=== PATIENT | male | born 1990 | race African-American/Black ===

== ENCOUNTER 2023-03-11 16:04 | Observation (INO) | payer OTHER, SELFPAY ==
--- NOTE | ~2023-03-11 | CT_ITS ---
CT OF right lower extremity EXAMINATION: CT LE RT w con DATE: 03/11/2023 20:43 INDICATION: Inner thigh abscess TECHNIQUE: Computed tomography (CT) of the right lower extremity was performed without intravenous co ntrast. Automated exposure control and iterative reconstruction technique were employed. The dose-fabien gth product was 1028.60 mGy-cm. COMPARISON: None FINDINGS: No osseous fracture, erosion, or periosteal change. Mild degenerative change in the right hip. Pelvic contents are normal. Bilateral inguinal lymphadenopathy. 16 mm cutaneous hypodensity in the medial t high, without a well-formed enhancing wall. Surrounding skin thickening and subcutaneous edema/inflam matory change. No discrete abscess. No other low-density collection. IMPRESSION: 16 mm cutaneous hypodensity in the right medial thigh may represent phlegmon or early abscess. Surrou nding dermal thickening and subcutaneous induration would be consistent with cellulitis. Reviewed, dictated and finalized at location K. IMPRESSION: 16 mm cutaneous hypodensity in the right medial thigh may represent phlegmon or early abscess. Surrounding dermal thickening and subcutaneous induration would be consistent with cellulitis.
[2023-03-11 19:13] VITALS: BP 134/102; PULSE 111; RESP 16; TEMP 36.1; O2SAT 99
--- NOTE | 2023-03-11 19:27 | ED.SKABFB ---
HPI - Skin/Abscess/Foreign Bdy General Chief complaint: Skin/Abscess/Foreign Body Time Seen by Provider: 03/11/23 19:11 History of Present Illness HPI narrative: Patient is a 32-year-old male here for evaluation of a painful lesion to his right inner thigh. Patient states he first noticed pain to the thigh about 4 days ago. Pain has gradually increased, and he noticed an area of firmness and redness develop as well. Yesterday the lesion started to drain clear material and has continued to drain into today. He reports subjective fevers yesterday. He has no past medical history. No nausea, vomiting, abdominal pain. Related Data Allergies Allergy/AdvReac Type Severity Reaction Status Date / Time amoxicillin Allergy Unknown Verified 03/11/23 19:15 Penicillins Allergy Unknown Verified 03/11/23 19:15 Review of Systems Review of Systems: Gen.: Denies fevers or chills Eyes: Denies eye pain or visual change ENT: Denies congestion Respiratory: Denies shortness of breath or cough CV: Denies chest pain or palpitations GI: Denies abdominal pain nausea, emesis or diarrhea denies burning, urgency, frequency or hematuria Musculoskeletal: Denies back pain or muscle pain Neuro: Denies numbness, tingling, weakness or focal weakness Skin: Reports abscess to right inner thigh Except as documented, all other systems reviewed and negative [facility] Past Medical History Medical History (Updated 03/19/23 @ 09:36 by Jenna Harp) No pertinent past medical history Surgical History Surgical History (Updated 03/19/23 @ 09:17 by Jenna Harp) Status post incision and drainage incision and drainage of simple right medial thigh abscess 03/12/23 Family History Family History Mother Diabetes mellitus Father Diabetes mellitus Social History Social History Smoking status: Never smoker Alcohol intake: never Substance use: never Lack of Transportation: No Lack of Food: Never True Current Housing: I Have Housing Concerned About Future Housing: No Difficulty Paying Gas/Electric Bills: No Difficulty Paying for Meds: No Currently Unemployed: No Education: Associate Degree Difficulty w/ Childcare or Family Care: No Spiritual care concerns: No Exam Narrative: Gen: Alert, oriented, no acute distress Eyes: EOMI, no icterus Pulm: Respirations even and unlabored, symmetric thorax expansion, no audible stridor or visible cyanosis CV: Regular rate per telemetry GI: No distension, no voluntary/involuntary guarding Neuro: AOx4, moves all extremities without apparent difficulty or weakness, follows commands Skin: There is a 8 x 6 cm area of induration to the right inner thigh with dark discoloration over time and a possible central area of fluctuance Psych: Normal mood/affect, insight/judgement good, adequate fund of knowledge, recent/remote memory intact Course Vital Signs Vital signs: Vital Signs Temperature 36.1 C L 03/11/23 19:13 Pulse Rate 111 H 03/11/23 19:13 Respiratory Rate 16 03/11/23 19:13 Blood Pressure 134/102 H 03/11/23 19:13 Pulse Oximetry 99 03/11/23 19:13 Oxygen Delivery Room Air 03/11/23 19:13 Temperature 36.3 C L 03/13/23 15:11 Pulse Rate 75 03/13/23 15:11 Respiratory Rate 18 03/13/23 15:11 Blood Pressure 123/81 03/13/23 15:11 Pulse Oximetry 100 03/13/23 15:11 Oxygen Delivery Room Air 03/13/23 08:00 MDM - Skin/Abscess/Foreign Bdy MDM Narrative Medical decision making narrative: 32 year old male here with an extensive cellulitis to the right inner thigh. No known past medical history but patient's blood sugar is elevated at 350 and hemoglobin a1c is 12 here. Slightly tachycardic but afebrile. White count is 13. Lactic is negative. Area was scanned to r/o fourniers/nec fasc and it has no subcutaneous gas or other concerning e
[2023-03-11] MEDS: KETOROLAC 15 MG/ML VIAL (*BKC) IV PUSH (19:40)
[2023-03-11] MEDS: CLINDAMYCIN 600 MG/D5W 50 ML 600 MG/50 ML PIGGYBACK 100 MG IVPB (19:40)
[2023-03-11] MEDS: SODIUM CHLORIDE 0.9% IV 1,000 ML 999 ML IV CONT (19:41)
[2023-03-11 19:42] LABS: Basophils Percent Auto 0.1 % (0.2-1.2); Eosinophils Percent Auto 0.3 % (0-4.4); Hematocrit 46.2 % (42.0-52.0); Hemoglobin 15.1 g/dL (14.0-18.0); Immature Granulocyte Absolute 0.03 K/mm3 (0.00-0.031); Immature Granulocyte Percent A 0.2 % (0-0.5); Lymphocytes Absolute Auto 1.51 K/mm3 (0.9-3.2); Lymphocytes Percent Auto 11.3 % (18.3-44.2); Mean Corpuscular HGB Conc 32.7 g/dl (32-36); Mean Corpuscular Hemoglobin 28.7 pg (26-34); Mean Corpuscular Volume 87.8 fl (80-100); Mean Platelet Volume 10.4 fl (7.4-10.4); Monocytes Absolute Auto 0.9 K/mm3 (0.1-0.6); Monocytes Percent Auto 6.4 % (2.6-8.5); Neutrophils Absolute Auto 10.9 K/mm3 (1.3-6.7); Neutrophils Percent Auto 81.7 % (45.5-73.1); Platelet Count Result 392 k/mm3 (150-375); Red Blood Count 5.26 M/mm3 (4.6-6.20); Red Cell Distribution Width 12.6 % (11.5-14.5); White Blood Count 13.4 K/mm3 (4.5-10.0)
[2023-03-11 19:53] LABS: Lactic Acid Reflex 1.3 mmol/L (0.7-2.0)
[2023-03-11 20:04] LABS: Anion Gap 10 mmol/L (8-16); Blood Urea Nitrogen 10 mg/dL (9-20); Calcium 9.6 mg/dL (8.4-10.2); Carbon Dioxide 30 mmol/L (22-30); Chloride 96 mmol/L (98-107); Estimated CRCL calculation 138 ml/min; Estimated Glomerular Filt Rate > 60; Glucose 315 mg/dL (65-110); Potassium 3.8 mmol/L (3.4-5.0); Sodium 136 mmol/L (137-145)
[2023-03-11 21:38] LABS: Hemoglobin A1C 12.7 % (<5.7)
[2023-03-12 02:24] VITALS: BP 147/90; PULSE 93; RESP 16; TEMP 35.7; O2SAT 99; BMI 32.8
[2023-03-12] MEDS: CLINDAMYCIN 600 MG/D5W 50 ML 600 MG/50 ML PIGGYBACK 100 MG IVPB ×3 (04:00→21:41)
[2023-03-12 05:53] VITALS: BP 126/77; PULSE 91; RESP 18; TEMP 35.7; O2SAT 99
[2023-03-12 07:51] VITALS: BMI 32.1
--- NOTE | 2023-03-12 09:36 | PM.IMHP ---
H&P: HPI History of Present Illness Date/Time: 03/12/23 09:36 Chief Complaint: Right thigh abscess Narrative: This is a 32-year-old man with no known medical history, who presented to the ER last night with complaints of right thigh swelling, pain, and drainage. He first noticed some swelling in his right medial upper thigh 4 days ago. This was initially small and grew larger over the next 2 days. Blaze, 2 days ago, he noticed purulent drainage from this area. Reports subjective fevers two days ago. In the ER, labs were significant for WBC count 13,400, lactic acid 1.3, and glucose 315. Hgb A1C was subsequently ordered and is 12.7. CT right lower extremity showed 16 mm cutaneous hypodensity in the right medial thigh that may represent phlegmon or early abscess with surrounding dermal thickening and subcutaneous induration, consistent with cellulitis. Our service was consulted by the ER and he was admitted to our service for surgical evaluation of right thigh abscess. He is seen this morning. Denies having a history of abscess. Denies a known history of diabetes, but does have a family history in his mother and father. He does not currently have a primary care provider. With further questioning, he also reports recent frequent urination, excessive thirst, and about a 20 lb weight loss in the last 4 months. He has actually been debating being seen for the concern that he could be diabetic. He is still having drainage from this area this morning and feels it has actually gone down in size as of this morning with some relief in his discomfort. He has been started on IV Clindamycin. No other complaints at this time. Review of Systems Review of Systems: All systems reviewed & are unremarkable except as noted in HPI and below Constitutional: Constitutional: Reports no additional constitutional complaints, Reports chills, Denies fatigue, Reports fever(s) and Reports weight loss Eyes: Eyes: Reports no additional eye complaints and Denies blurry vision ENT: Reports system reviewed and no additional complaints, except as documented, Denies dizziness and Reports dry mouth Cardiovascular: Cardiovascular: Reports no additional cardiovascular complaints, Denies chest pain and Denies leg edema Respiratory: Respiratory: Reports no additional respiratory complaints, Denies cough and Denies dyspnea Gastrointestinal: Gastrointestinal: Reports as per HPI, Reports no additional gastrointestinal complaints, Denies abdominal pain, Denies change in bowel habits, Denies constipation, Denies diarrhea, Denies nausea and Denies vomiting Genitourinary: Genitourinary: Reports no additional male genitourinary complaints, Denies dysuria and Reports urinary frequency Musculoskeletal: Musculoskeletal: Reports no additional musculoskeletal complaints, Denies abnormal gait and Denies joint swelling Integumentary/Breasts: Skin/Breast: Reports as per HPI and Reports skin swelling (right medial upper thigh) Neurologic: Reports system reviewed and no additional complaints, except as documented, Denies headache(s), Denies focal weakness, Denies numbness and Denies tingling PMFSH Past Medical History Medical History No pertinent past medical history Surgical History Surgical History No significant past surgical history Family History Family History Mother Diabetes mellitus Father Diabetes mellitus Social History Social History Smoking status: Never smoker Alcohol intake: never Substance use: never Lack of Transportation: No Lack of Food: Never True Current Housing: I Have Housing Concerned About Future Housing: No Difficulty Paying Gas/Electric Bills: No Difficulty Paying for Meds: No Currently Unemployed: No Education: Associate De
--- NOTE | 2023-03-12 10:44 | P.OP_ITS ---
Procedure Note - Detailed Date of Procedure 03/12/23 Pre-op Diagnosis Right medial upper thigh abscess Post-op Diagnosis Same Procedure Performed Incision and drainage of simple right medial thigh abscess Surgeon NUBIA Quinonez Paint Line Supervisor AUBREE Hoskins Anesthesia Local (lidocaine 1% with epinephrine) Indications This is a 32 year old man who presented to the ER with a right medial thigh abscess. He was was also found to have hyperglycemia on initial labs with an elevated hemoglobin A1C with newly diagnosed diabetes. He was admitted and evaluated this morning. Decision was made to proceed with incision and drainage of right medial thigh abscess at the bedside. Findings Right medial upper thigh abscess Description of Procedure The patient was placed in the supine position in the hospital bed with his legs flexed and externally rotated on the bed. The site of the abscess for required I&D was identified on the right medial upper thigh. Following this, the area was prepped with chlorhexidine swabs and draped in usual sterile fashion. Then, local anesthetic was infiltrated directly over the area of swelling and abscess formation. There was a 1 cm x 1 cm area of pressure necrosis where the opening was located with purulence draining from this area. Scissors and pickups were used for sharp debridement of the small area of necrotic skin. Then using a #15 blade scalpel I extended the opening and made an incision anteriorly and posteriorly to create a 2 cm opening. I then probed the opening and found a pocket of purulent fluid that tunnelled about 1-2 cm deep and posterior. All purulent drainage was expressed from the abscess. The abscess cavity was again probed with all loculation broken up. Following this, the area was packed with 1/4 inch iodoform Nu Gauze. The area was then covered with 4x4s and tape. The patient tolerated the procedure well. Estimated Blood Loss 0 Drains No Packing Yes Pathology None sent Complications No immediate complications Condition Stable Disposition No change [facility] Billing Surgery - Charge Forward: Surgery Billing
[2023-03-12 11:30] VITALS: BMI 32.1
[2023-03-12] MEDS: LIDO 1%/EPINEPHRINE 1:100,000 20 ML VIAL 5 ML INFILTRATE (11:30)
[2023-03-12 11:52] LABS: Glucose Point of Care 211 mg/dl (65-105)
[2023-03-12 12:32] LABS: Basophils Percent Auto 0.3 % (0.2-1.2); Eosinophils Percent Auto 0.3 % (0-4.4); Hematocrit 39.7 % (42.0-52.0); Hemoglobin 12.8 g/dL (14.0-18.0); Immature Granulocyte Absolute 0.04 K/mm3 (0.00-0.031); Immature Granulocyte Percent A 0.3 % (0-0.5); Lymphocytes Percent Auto 12.9 % (18.3-44.2); Mean Corpuscular HGB Conc 32.2 g/dl (32-36); Mean Corpuscular Hemoglobin 28.4 pg (26-34); Mean Platelet Volume 10.3 fl (7.4-10.4); Monocytes Absolute Auto 0.7 K/mm3 (0.1-0.6); Monocytes Percent Auto 6.3 % (2.6-8.5); Neutrophils Absolute Auto 9.3 K/mm3 (1.3-6.7); Neutrophils Percent Auto 79.9 % (45.5-73.1); Platelet Count Result 359 k/mm3 (150-375); Red Blood Count 4.51 M/mm3 (4.6-6.20); Red Cell Distribution Width 12.5 % (11.5-14.5); White Blood Count 11.6 K/mm3 (4.5-10.0)
[2023-03-12] MEDS: glipiZIDE XL 5 MG TABCR PO (12:35)
[2023-03-12] MEDS: metFORMIN HCL XR 500 MG TAB.SR.24H PO ×2 (12:35→17:37)
[2023-03-12] MEDS: INSULIN ASPART (*BKC) 100 UNITS/ML SUB-Q (12:35)
[2023-03-12] MEDS: ACETAMINOPHEN 500 MG TABLET 1000 MG PO (12:42)
[2023-03-12 12:46] LABS: Alanine Aminotransferase 57 U/L (6-50); Albumin Level 4.3 g/dL (3.5-5.1); Alkaline Phosphatase 101 U/L (38-126); Anion Gap 9 mmol/L (8-16); Aspartate Amino Transferase 41 U/L (17-59); Bilirubin,Total 0.8 mg/dL (0.2-1.3); Blood Urea Nitrogen 9 mg/dL (9-20); Calcium 8.7 mg/dL (8.4-10.2); Carbon Dioxide 31 mmol/L (22-30); Chloride 98 mmol/L (98-107); Estimated CRCL calculation 159 ml/min; Estimated Glomerular Filt Rate > 60; Glucose 227 mg/dL (65-110); Potassium 3.4 mmol/L (3.4-5.0); Sodium 138 mmol/L (137-145)
[2023-03-12 13:03] LABS: Procalcitonin 0.1 ng/mL
[2023-03-12 14:52] VITALS: BP 127/84; PULSE 82; RESP 18; TEMP 36.7; O2SAT 100
--- NOTE | 2023-03-12 16:02 | PM.IMPN ---
Subjective Date/time seen: 03/12/23 16:02 Objective Data Vital Signs Vital Signs: Vital Signs - 24 hr 03/11/23 19:13 03/12/23 02:24 03/12/23 05:53 Temperature 97 F L 96.3 F L 96.2 F L Pulse Rate 111 H 93 91 Respiratory Rate 16 16 18 Blood Pressure 134/102 H 147/90 H 126/77 Pulse Oximetry 99 99 99 Oxygen Delivery Room Air 03/12/23 14:52 Temperature 98.1 F Pulse Rate 82 Respiratory Rate 18 Blood Pressure 127/84 Pulse Oximetry 100 Oxygen Delivery Intake/Output Intake/Output: Intake & Output 03/09/23 03/10/23 03/11/23 03/12/23 23:59 23:59 23:59 23:59 Intake Total 1050 465 Balance 1050 465 Meds/Results Medications: Active Medications Generic Name Dose Route Start Last Admin Trade Name Freq PRN Reason Stop Dose Admin Acetaminophen 1,000 mg 03/12/23 09:37 03/12/23 12:42 Acetaminophen 500 Mg Tablet PO 1,000 mg Q6H PRN Administration Mild Pain (1-3) or Fever Hydrocodone Bitart/Acetaminophen 1 tab 03/12/23 09:53 Hydrocodone/Acetaminophen (*Crx) 5-325 Mg Tablet PO Q4H PRN Pain Rated 4-6 Dextrose 12.5 gm 03/12/23 09:07 Dextrose 50% 25 Gm/50 Ml Syringe IV PUSH PRN PRN Hypoglycemia Protocol Glipizide 5 mg 03/12/23 11:00 03/12/23 12:35 Glipizide Xl 5 Mg Tabcr PO 5 mg DAILY@0800 KRISTEN Administration Glucagon 1 mg 03/12/23 09:07 Glucagon For Inj 1 Mg Vial IM PRN PRN Hypoglycemia Protocol Glucose 15 gm 03/12/23 09:07 Glucose Oral Gel 15 Gm Of Glucse In 37.5 Gm Tube PO PRN PRN Hypoglycemia Protocol Clindamycin Phosphate 600 mg in 50 mls @ 100 mls/hr 03/12/23 13:00 03/12/23 13:12 Clindamycin 600 Mg/D5w 50 Ml IVPB Infused Q8HR KRISTEN Infusion Dextrose 1,000 mls @ 100 mls/hr 03/12/23 09:07 Dextrose 5% 1,000 Ml IVPB PRN PRN Hypoglycemia Protocol Insulin Aspart 3 - 6 units 03/12/23 12:00 03/12/23 12:35 Insulin Aspart (*Bkc) 100 Units/Ml SUB-Q 3 units TIDWM KRISTEN Administration Protocol Insulin Human NPH 16 units 03/12/23 16:30 Insulin Human Nph (*Bkc) 100 Units/Ml SUB-Q BIDAC KRISTEN Metformin HCl 500 mg 03/12/23 11:00 03/12/23 12:35 Metformin Hcl Xr 500 Mg Tab.Sr.24h PO 500 mg BIDWM KRISTEN Administration Radiology Results: ITS Impressions Lower Extremity CT 03/11/23 21:29 IMPRESSION: 16 mm cutaneous hypodensity in the right medial thigh may represent phlegmon or early abscess. Surrounding dermal thickening and subcutaneous induration would be consistent with cellulitis. Labs Labs: Laboratory Results - last 24 hr 03/11/23 03/11/23 03/12/23 19:34 20:44 11:40 WBC 13.4 H RBC 5.26 Hgb 15.1 Hct 46.2 MCV 87.8 MCH 28.7 MCHC 32.7 RDW 12.6 Plt Count 392 H MPV 10.4 Immature Gran % (Auto) 0.2 Neut % (Auto) 81.7 H Lymph % (Auto) 11.3 L [place] % (Auto) 6.4 Eos % (Auto) 0.3 Baso % (Auto) 0.1 L Lymph # (Auto) 1.51 [place] # (Auto) 0.9 H Eos # (Auto) 0.0 Baso # (Auto) 0.0 Abs Immat Gran (auto) 0.03 Absolute Neuts (auto) 10.9 H Absolute Nucleated RBC 0.0 Nucleated RBC % 0.0 Sodium 136 L Potassium 3.8 Chloride 96 L Carbon Dioxide 30 Anion Gap 10 BUN 10 Creatinine 0.80 Estim Creat Clear Calc 138 Estimated GFR > 60 Glucose 315 H POC Capillary Glucose 211 H Hemoglobin A1c 12.7 H Lactic Acid 1.3 Calcium 9.6 Total Bilirubin AST ALT Alkaline Phosphatase Total Protein Albumin Procalcitonin 03/12/23 12:11 WBC 11.6 H RBC 4.51 L Hgb 12.8 L Hct 39.7 L MCV 88.0 MCH 28.4 MCHC 32.2 RDW 12.5 Plt Count 359 MPV 10.3 Immature Gran % (Auto) 0.3 Neut % (Auto) 79.9 H Lymph % (Auto) 12.9 L [place] % (Auto) 6.3 Eos % (Auto) 0.3 Baso % (Auto) 0.3 Lymph # (Auto) 1.50 [place] # (Auto) 0.7 H Eos # (Auto) 0.0 Baso # (Auto) 0.0 Abs Immat Gran (auto) 0.04 H Absolute N
--- NOTE | 2023-03-12 16:03 | PM.IMCN ---
Assessment and Plan Assessment and plan (1) Newly diagnosed diabetes: Code(s): E11.9 - Type 2 diabetes mellitus without complications Status: Acute Assessment and Plan: General surgery concern for diabetes due to have process forming. Patient's glucose on admission 315. Hemoglobin A1c 12.7 patient started on Lantus 16 units and medium dose sliding scale. Accu-Cheks a.c. HS Hypoglycemic protocols initiated clinical educator consulted Care coordination consult for insulin (2) Abscess of right thigh: Code(s): L02.415 - Cutaneous abscess of right lower limb Status: Acute Assessment and Plan: General surgery managing Patient underwent I and D today Cultures ordered and obtained Clindamycin IV 600 mg q.8 hours Tailor antibiotic therapy to culture results. Plan Appreciate the consultation. Will follow patient with you. HPI Data of Consult Consult date: 03/12/23 Requesting Physician: Breanne Denton MD Primary Care Provider: SHOP MECHANIC PHYSICIAN Consult Narrative Reason for consult: Diabetes management Narrative: Alphonse Carlisle Jr. is a 32 year old male admitted to the hospital due to right inner thigh abscess. Hospitalists team consulted due to new diabetes diagnosis and diabetes management. Patient does not have any other chronic conditions. Care coordination consulted for insulin pricing as well as hematology nurse educator. Review of Systems Review of Systems: All systems reviewed & are unremarkable except as noted in HPI and below PMFSH Past Medical History Medical History No pertinent past medical history Surgical History Surgical History No significant past surgical history Family History Family History Mother Diabetes mellitus Father Diabetes mellitus Social History Social History Smoking status: Never smoker Alcohol intake: never Substance use: never Lack of Transportation: No Lack of Food: Never True Current Housing: I Have Housing Concerned About Future Housing: No Difficulty Paying Gas/Electric Bills: No Difficulty Paying for Meds: No Currently Unemployed: No Education: Associate Degree Difficulty w/ Childcare or Family Care: No Spiritual care concerns: No Meds Home Medications and Allergies Home Medications Medication Instructions Recorded Confirmed Type ibuprofen 600 mg tablet 600 mg PO Q6H PRN Pain (Scale 03/12/23 03/12/23 History Score 4-6) Allergies Allergy/AdvReac Type Severity Reaction Status Date / Time amoxicillin Allergy Unknown Verified 03/11/23 19:15 Penicillins Allergy Unknown Verified 03/11/23 19:15 Vital Signs Vital Signs - 24 hr 03/11/23 19:13 03/12/23 02:24 03/12/23 05:53 Temperature 97 F L 96.3 F L 96.2 F L Pulse Rate 111 H 93 91 Respiratory Rate 16 16 18 Blood Pressure 134/102 H 147/90 H 126/77 Pulse Oximetry 99 99 99 Oxygen Delivery Room Air 03/12/23 14:52 Temperature 98.1 F Pulse Rate 82 Respiratory Rate 18 Blood Pressure 127/84 Pulse Oximetry 100 Oxygen Delivery Exam Narrative: GENERAL: Comfortable, no acute distress HENMT: moist mucous membranes EYES: EOM intact b/l NECK: no lymphadenopathy RESPIRATORY: clear to auscultation CARDIO: RRR GI: soft, nontender, bowel sounds present SKIN: right sided inner groin abscess post I and D EXTREMITIES: no edema, redness or tenderness Results Labs 03/12/23 12:11 03/12/23 12:11 Labs: Short CBC 03/11/23 03/12/23 Range/Units 19:34 12:11 WBC 13.4 H 11.6 H (4.5-10.0) K/mm3 Hgb 15.1 12.8 L (14.0-18.0) g/dL Hct 46.2 39.7 L (42.0-52.0) % Plt Count 392 H 359 (150-375) k/mm3 BMP 03/11/23 03/12/23 19:34
[2023-03-12 16:54] LABS: Glucose Point of Care 175 mg/dl (65-105)
[2023-03-12] MEDS: INSULIN HUMAN NPH (*BKC) 100 UNITS/ML 16 UNITS SUB-Q (17:37)
[2023-03-12 20:00] VITALS: PULSE 86; RESP 16; O2SAT 99
[2023-03-12 20:51] LABS: Glucose Point of Care 166 mg/dl (65-105)
[2023-03-12 22:00] VITALS: BP 135/77; PULSE 86; RESP 16; TEMP 35.9; O2SAT 99
[2023-03-13] MEDS: CLINDAMYCIN 600 MG/D5W 50 ML 600 MG/50 ML PIGGYBACK 100 MG IVPB (05:20)
[2023-03-13 06:00] VITALS: BP 135/80; PULSE 81; RESP 18; TEMP 36.1; O2SAT 100
[2023-03-13] MEDS: INSULIN HUMAN NPH (*BKC) 100 UNITS/ML 16 UNITS SUB-Q (07:23)
[2023-03-13 07:27] LABS: Glucose Point of Care 175 mg/dl (65-105)
[2023-03-13 07:45] LABS: Hematocrit 42.7 % (42.0-52.0); Hemoglobin 13.5 g/dL (14.0-18.0); Mean Corpuscular HGB Conc 31.6 g/dl (32-36); Mean Corpuscular Volume 88.6 fl (80-100); Mean Platelet Volume 10.5 fl (7.4-10.4); Platelet Count Result 405 k/mm3 (150-375); Red Blood Count 4.82 M/mm3 (4.6-6.20); Red Cell Distribution Width 12.4 % (11.5-14.5); White Blood Count 9.7 K/mm3 (4.5-10.0)
[2023-03-13 07:47] LABS: Anion Gap 10 mmol/L (8-16); Blood Urea Nitrogen 8 mg/dL (9-20); Calcium 8.7 mg/dL (8.4-10.2); Carbon Dioxide 29 mmol/L (22-30); Chloride 99 mmol/L (98-107); Estimated CRCL calculation 141 ml/min; Estimated Glomerular Filt Rate > 60; Glucose 156 mg/dL (65-110); Magnesium 2.3 mg/dL (1.6-2.3); Potassium 3.2 mmol/L (3.4-5.0); Sodium 138 mmol/L (137-145)
[2023-03-13] MEDS: metFORMIN HCL XR 500 MG TAB.SR.24H PO (08:55)
[2023-03-13] MEDS: glipiZIDE XL 5 MG TABCR PO (08:55)
[2023-03-13] MEDS: ACETAMINOPHEN 500 MG TABLET 1000 MG PO (08:58)
[2023-03-13] MEDS: POTASSIUM CHLORIDE 20 MEQ TABLET 40 MEQ PO (10:16)
[2023-03-13] MEDS: HYDROcodone/acetaminophen (*CRX) 5-325 MG TABLET 1 TAB PO (10:16)
--- NOTE | 2023-03-13 11:41 | PM.PNGS ---
Progress Note: A&P Assessment and Plan (1) Abscess of right thigh: Code(s): L02.415 - Cutaneous abscess of right lower limb Status: Acute Assessment and Plan: S/p I&D yesterday. Abscess adequately drained. Will have nursing repack this area again today with iodoform gauze. Okay to discharge from our standpoint today on oral antibiotics. Remove packing tomorrow and continue daily gauze dressing changes. Follow-up in 1-2 weeks. (2) Newly diagnosed diabetes: Code(s): E11.9 - Type 2 diabetes mellitus without complications Status: Acute Plan I have discussed the patient's case and plan of care with Dr. Mejía. Subjective Subjective Date/Time Seen: 03/13/23 10:41 Post Op day: 1 (I&D right medial thigh abscess) Patient reports: no new complaints, feels better and afebrile Interval history: Patient still having some pain, but overall feels his right groin pain and swelling has improved since yesterday. It is still painful to stand and sit on a chair. No other complaints or acute events overnight. Review of Systems Review of Systems: All systems reviewed & are unremarkable except as noted in HPI and below Exam Narrative: Right groin dressing removed, still a small amount of purulent drainage coming from the tunneling posteriorly that can be packed with iodoform, induration and swelling improved Const: General: comfortable and no acute distress Orientation/consciousness: patient oriented x3 Objective Data Vital Signs Vital Signs: Vital Signs - 24 hr 03/12/23 14:52 03/12/23 22:00 03/12/23 20:00 Temperature 98.1 F 96.7 F L Pulse Rate 82 86 86 Respiratory Rate 18 16 16 Blood Pressure 127/84 135/77 Pulse Oximetry 100 99 99 Oxygen Delivery Room Air 03/13/23 06:00 03/13/23 08:00 Temperature 97 F L Pulse Rate 81 Respiratory Rate 18 Blood Pressure 135/80 Pulse Oximetry 100 Oxygen Delivery Room Air Intake/Output Intake/Output: Intake & Output 03/10/23 03/11/23 03/12/23 03/13/23 23:59 23:59 23:59 23:59 Intake Total 1050 1705 560 Balance 1050 1705 560 Meds/Results Medications: Active Medications Generic Name Dose Route Start Last Admin Trade Name Freq PRN Reason Stop Dose Admin Acetaminophen 1,000 mg 03/12/23 09:37 03/13/23 08:58 Acetaminophen 500 Mg Tablet PO 1,000 mg Q6H PRN Administration Mild Pain (1-3) or Fever Hydrocodone Bitart/Acetaminophen 1 tab 03/12/23 09:53 03/13/23 10:16 Hydrocodone/Acetaminophen (*Crx) 5-325 Mg Tablet PO 1 tab Q4H PRN Administration Pain Rated 4-6 Dextrose 12.5 gm 03/12/23 09:07 Dextrose 50% 25 Gm/50 Ml Syringe IV PUSH PRN PRN Hypoglycemia Protocol Glipizide 5 mg 03/12/23 11:00 03/13/23 08:55 Glipizide Xl 5 Mg Tabcr PO 5 mg DAILY@0800 KRISTEN Administration Glucagon 1 mg 03/12/23 09:07 Glucagon For Inj 1 Mg Vial IM PRN PRN Hypoglycemia Protocol Glucose 15 gm 03/12/23 09:07 Glucose Oral Gel 15 Gm Of Glucse In 37.5 Gm Tube PO PRN PRN Hypoglycemia Protocol Clindamycin Phosphate 600 mg in 50 mls @ 100 mls/hr 03/12/23 13:00 03/13/23 05:20 Clindamycin 600 Mg/D5w 50 Ml IVPB 100 mls/hr Q8HR KRITSEN Administration Dextrose 1,000 mls @ 100 mls/hr 03/12/23 09:07 Dextrose 5% 1,000 Ml IVPB PRN PRN Hypoglycemia Protocol Insulin Aspart 3 - 6 units 03/12/23 12:00 03/13/23 08:11 Insulin Aspart (*Bkc) 100 Units/Ml SUB-Q Not Given TIDWM [facility] Protocol Insulin Human NPH 16 units 03/12/23 16:30 03/13/23 07:23 Insulin Human Nph (*Bkc) 100 Units/Ml SUB-Q 16 units BIDAC KRISTEN Administration Metformin HCl 500 mg 03/12/23 11:00 03/13/23 08:55 Metformin Hcl Xr 500 Mg Tab.Sr.24h PO 500 mg BIDWM KRISTEN Administration Radiology Results: ITS Impressions Lower Extremity CT 03/11/23 21:29 IMPRESSION: 16 mm cutaneous hypodensity in the right medial thigh may represent p
[2023-03-13 11:47] LABS: Glucose Point of Care 151 mg/dl (65-105)
--- NOTE | 2023-03-13 13:33 | PM.IMPN ---
Progress Note: A&P Assessment and Plan (1) Newly diagnosed diabetes: Code(s): E11.9 - Type 2 diabetes mellitus without complications Status: Acute Assessment and Plan: General surgery concern for diabetes due to have process forming. Patient's glucose on admission 315. Hemoglobin A1c 12.7 patient started on Lantus 16 units and medium dose sliding scale. Accu-Cheks a.c. HS Hypoglycemic protocols initiated natural resources extension educator consulted Care coordination consult for insulin Plan to send patient home on metformin and Basaglar. Advised follow-up with a PCP. (2) Abscess of right thigh: Code(s): L02.415 - Cutaneous abscess of right lower limb Status: Acute Assessment and Plan: General surgery managing Patient underwent I and D today Cultures ordered and obtained Clindamycin IV 600 mg q.8 hours Tailor antibiotic therapy to culture results. Plan Appreciate the consultation. Will follow patient with you. Subjective Date/time seen: 03/13/23 13:33 Interval history: Patient doing well with no new complaints at this time. Discussed further insulin needs. Patient most likely being discharged today. He is okay to discharge from hospital standpoint. Review of Systems Review of Systems: All systems reviewed & are unremarkable except as noted in HPI and below Exam Narrative: GENERAL: Comfortable, no acute distress HENMT: moist mucous membranes EYES: EOM intact b/l NECK: no lymphadenopathy RESPIRATORY: clear to auscultation CARDIO: RRR GI: soft, nontender, bowel sounds present SKIN: right sided inner groin abscess post I and D EXTREMITIES: no edema, redness or tenderness Objective Data Vital Signs Vital Signs: Vital Signs - 24 hr 03/12/23 14:52 03/12/23 22:00 03/12/23 20:00 Temperature 98.1 F 96.7 F L Pulse Rate 82 86 86 Respiratory Rate 18 16 16 Blood Pressure 127/84 135/77 Pulse Oximetry 100 99 99 Oxygen Delivery Room Air 03/13/23 06:00 03/13/23 08:00 Temperature 97 F L Pulse Rate 81 Respiratory Rate 18 Blood Pressure 135/80 Pulse Oximetry 100 Oxygen Delivery Room Air Intake/Output Intake/Output: Intake & Output 03/10/23 03/11/23 03/12/23 03/13/23 23:59 23:59 23:59 23:59 Intake Total 1050 1705 800 Balance 1050 1705 800 Meds/Results Medications: Active Medications Generic Name Dose Route Start Last Admin Trade Name Brandonq PRN Reason Stop Dose Admin Acetaminophen 1,000 mg 03/12/23 09:37 03/13/23 08:58 Acetaminophen 500 Mg Tablet PO 1,000 mg Q6H PRN Administration Mild Pain (1-3) or Fever Hydrocodone Bitart/Acetaminophen 1 tab 03/12/23 09:53 03/13/23 10:16 Hydrocodone/Acetaminophen (*Crx) 5-325 Mg Tablet PO 1 tab Q4H PRN Administration Pain Rated 4-6 Dextrose 12.5 gm 03/12/23 09:07 Dextrose 50% 25 Gm/50 Ml Syringe IV PUSH PRN PRN Hypoglycemia Protocol Glipizide 5 mg 03/12/23 11:00 03/13/23 08:55 Glipizide Xl 5 Mg Tabcr PO 5 mg DAILY@0800 KRISTEN Administration Glucagon 1 mg 03/12/23 09:07 Glucagon For Inj 1 Mg Vial IM PRN PRN Hypoglycemia Protocol Glucose 15 gm 03/12/23 09:07 Glucose Oral Gel 15 Gm Of Glucse In 37.5 Gm Tube PO PRN PRN Hypoglycemia Protocol Clindamycin Phosphate 600 mg in 50 mls @ 100 mls/hr 03/12/23 13:00 03/13/23 05:20 Clindamycin 600 Mg/D5w 50 Ml IVPB 100 mls/hr Q8HR KRISTEN Administration Dextrose 1,000 mls @ 100 mls/hr 03/12/23 09:07 Dextrose 5% 1,000 Ml IVPB PRN PRN Hypoglycemia Protocol Insulin Aspart 3 - 6 units 03/12/23 12:00 03/13/23 11:46 Insulin Aspart (*Bkc) 100 Units/Ml SUB-Q Not Given TIDWM [facility] Protocol Insulin Human NPH 16 units 03/12/23 16:30 03/13/23 07:23 Insulin Human Nph (*Bkc) 100 Units/Ml SUB-Q 16 units BIDAC KRISTEN Administration Metformin HCl 500 mg 03/12/23 11:00 03/13/23 08:55 Metformi
--- NOTE | 2023-03-13 14:38 | PM.DS ---
DS: Admitting Diagnosis Discharge Date 03/13/2023 Admitting Diagnosis Right medial upper thigh abscess Newly diagnosed diabetes DS: Discharge Diagnosis Discharge Diagnosis (1) Abscess of right thigh: Code(s): L02.415 - Cutaneous abscess of right lower limb Status: Acute (2) Newly diagnosed diabetes: Code(s): E11.9 - Type 2 diabetes mellitus without complications Status: Acute DS: Summary Hospital Course Reason for hospitalization: This is a 32-year-old man who presented to the ER for evaluation of right groin swelling and pain. He was found to have leukocytosis and hyperglycemia. Workup revealed CT evidence of likely an early abscess in the right medial thigh with surrounding cellulitis. The patient was admitted for surgical evaluation and further workup. Hospital Course: Due to his hyperglycemia, hemoglobin A1c was checked and significantly elevated at 12.7. This was a new diagnosis for him. Hospitalist was consulted for management of the newly diagnosed diabetes. He was started on IV clindamycin. He was also started on metformin, glipizide, and insulin. He had a bedside incision and drainage of right medial thigh abscess on 03/12/2023. This was packed with quarter-inch iodoform gauze. Labs were monitored and his white blood cell count normalized. He had mild hypokalemia that was treated with KCl replacement. Glucose improved and was in the 100s this morning. The conservation educator was consulted. Care coordination was also consulted for insulin at discharge with bracing. He was stable for discharge today. He was instructed to establish care with a primary care physician for diabetic management. He will follow up in the office with me in 1 week. Will transition to oral antibiotics on discharge. Status at Discharge Functional status at discharge: independent ambulation Overall status at discharge: patient is back to baseline Time Spent with Patient Time attestation: Total time spent providing and/or coordinating discharge services: Time spent: Less than 30 minutes DS: Data Data Completed and Pending Labs on day of discharge: Labs from last 24 hours 03/13/23 03/13/23 03/13/23 11:43 07:22 06:43 WBC 9.7 RBC 4.82 Hgb 13.5 L Hct 42.7 MCV 88.6 MCH 28.0 MCHC 31.6 L RDW 12.4 Plt Count 405 H MPV 10.5 H Sodium 138 Potassium 3.2 L Chloride 99 Carbon Dioxide 29 Anion Gap 10 BUN 8 L Creatinine 0.80 Estim Creat Clear Calc 141 Estimated GFR > 60 Glucose 156 H POC Capillary Glucose 151 H 175 H Calcium 8.7 Magnesium 2.3 03/12/23 03/12/23 20:46 16:46 WBC RBC Hgb Hct MCV MCH MCHC RDW Plt Count MPV Sodium Potassium Chloride Carbon Dioxide Anion Gap BUN Creatinine Estim Creat Clear Calc Estimated GFR Glucose POC Capillary Glucose 166 H 175 H Calcium Magnesium Procedures/Treatments: 03/12/23 - Incision and drainage simple right upper medial thigh abscess - Aminata Jensen NP Imaging Radiologist's impression: ITS Impressions Lower Extremity CT 03/11/23 21:29 IMPRESSION: 16 mm cutaneous hypodensity in the right medial thigh may represent phlegmon or early abscess. Surrounding dermal thickening and subcutaneous induration would be consistent with cellulitis. Discharge Plan Discharge Attending physician on discharge: Federico Mejía Consulting providers: Trae Li; Abby Simpson Discharging Clinician: Aminata Jensen Anticipated Discharge Date/Time: 03/13/23 14:36 Patient Disposition: Home, Self-Care Activity: may shower and other - see discharge instructions Diet: diabetic Wound Care Instructions: change dressing daily Discharge Instructions: Please establish with a primary care provider. DIABETES: New medications: Metformin 500 mg twice a day. Basaglar 16 units, administer at night.
[2023-03-13 15:11] VITALS: BP 123/81; PULSE 75; RESP 18; TEMP 36.3; O2SAT 100
== END 2023-03-13 16:20 | disposition home or self-care (01) ==
LOC: ANHED 19:11 → ANH3MEDSUR 03-12 11:39
PROVIDERS: Family Medicine; Internal Medicine; Internal Medicine Critical Care Medicine; Admitting Provider Surgery; Emergency Provider Physician Assistant; Visit Provider Surgery
DX: L02.415 Cutaneous abscess of right lower limb (principal); E11.9 Type 2 diabetes mellitus without complications; D72.829 Elevated white blood cell count, unspecified; R00.0 Tachycardia, unspecified; Z79.1 Long term (current) use of non-steroidal anti-inflammatories (NSAID)
CPT/HCPCS: 10060; 36415; 73701; 80048; 80053; 82948; 83036; 83605; 83735; 84145; 85025; 85027; 96365; 96375; 99285; A9270; G0378; J1815; J1885; J7030; Q9967